=== PATIENT | female | born 1985 | race Caucasian/White ===

== ENCOUNTER 2016-12-15 21:41 | Emergency (ER) | payer OTHER ==
[~2016-12-15 21:41] MED LIST: 'XANAX1 MG PO; ABILIFY2 MG PO; AMOXICILLIN500 M2 PO; AMOXIL500 MG PO; ARMOUR THYROID15 M1 PO; ATIVAN0.5 MG PO; B12,B-12,B 12500 MC1 PO; HYDROCODONE BIT1 T11 PO; LAMICTAL ODT25 MG MM; LASIX20 MG PO; LEVAQUIN750 M1 PO; MEDROL DOSEPAK4 MG PO; MELOXICAM7.5 MG PO; MOTRIN800 MG PO; NP THYROID30 MG PO; PERCOCET 325 MG1 TA2 PO; PERCOCET 325 MG1 TA5 PO; PREDNISONE20 M1 PO; PRENATAL1 TA1 PO; PROZAC40 MG PO; SERTRALINE HYDR50 MG PO; SPRINTEC 35 MCG1 TA1 PO; SYNTHROID0.075 MG PO; TESSALON PERLE100 M1 PO; TOPIRAMATE100 MG PO; TRAMADOL HCL50 MG PO; VENTOLIN 02.5 MG/3 M INH; VIBRAMYCIN100 MG PO; VICODIN 500 MG-1 TAB PO; ZOFRAN4 MG PO
[2016-12-15] MEDS ORDERED: PRENATAL1 TA3 PO (21:46)
[2016-12-15] MEDS ORDERED: PREDNISONE10 MG PO (21:53)
[2016-12-15] MEDS ORDERED: AVPAK AZITHROM250 M1 PO (21:53)
[2016-12-15] MEDS ORDERED: VENTOLIN H0.09 MG/AC INH (21:53)
== END 2016-12-15 22:17 | disposition home or self-care (01) ==
LOC: ED 21:41
DX: J06.9 Acute upper respiratory infection, unspecified (principal); R03.0 Elevated blood-pressure reading, without diagnosis of hypertension; F17.200 Nicotine dependence, unspecified, uncomplicated; F32.9 Major depressive disorder, single episode, unspecified; E03.9 Hypothyroidism, unspecified; Z90.49 Acquired absence of other specified parts of digestive tract; Z91.030 Bee allergy status; Z91.013 Allergy to seafood; Z88.8 Allergy status to other drugs, medicaments and biological substances

== ENCOUNTER 2017-01-11 13:53 | Emergency (ER) | payer OTHER ==
[~2017-01-11] VITALS: Ht 160 cm; Wt 108.9 kg
[~2017-01-11 13:53] MED LIST changes: +AVPAK AZITHROM250 M1 PO; +PREDNISONE10 MG PO; +PRENATAL1 TA3 PO; +VENTOLIN H0.09 MG/AC INH
[2017-01-11] MEDS ORDERED: LEVOTHYROXIN0.075 M1 PO (14:21)
[2017-01-11] MEDS ORDERED: ACYCLOVIR400 MG PO (15:30)
[2017-01-11] MEDS ORDERED: DELTASONE20 M1 PO (15:30)
== END 2017-01-11 15:39 | disposition home or self-care (01) ==
LOC: ED 13:53
DX: O26.892 Other specified pregnancy related conditions, second trimester (principal); G51.0 Bell's palsy; F17.200 Nicotine dependence, unspecified, uncomplicated; Z98.890 Other specified postprocedural states; Z90.49 Acquired absence of other specified parts of digestive tract; Z79.899 Other long term (current) drug therapy; Z91.030 Bee allergy status; Z88.6 Allergy status to analgesic agent; Z91.013 Allergy to seafood; Z88.3 Allergy status to other anti-infective agents; Z3A.22 22 weeks gestation of pregnancy

== ENCOUNTER 2017-12-18 23:28 | Emergency (ER) | payer OTHER ==
[~2017-12-18] VITALS: Ht 160 cm; Wt 102.1 kg
[~2017-12-18 23:28] MED LIST changes: +ACYCLOVIR400 MG PO; +DELTASONE20 M1 PO; +LEVOTHYROXIN0.075 M1 PO
[2017-12-19] MEDS ORDERED: ANAPROX DS550 MG PO (00:16)
[2017-12-19] MEDS ORDERED: CLINDAMYCIN HC300 MG PO (00:16)
== END 2017-12-19 00:53 | disposition home or self-care (01) ==
LOC: ED 23:28
DX: K08.89 Other specified disorders of teeth and supporting structures (principal); F17.200 Nicotine dependence, unspecified, uncomplicated; Z91.030 Bee allergy status; Z91.013 Allergy to seafood; Z88.8 Allergy status to other drugs, medicaments and biological substances; Z79.899 Other long term (current) drug therapy; Z90.49 Acquired absence of other specified parts of digestive tract

== ENCOUNTER → 2018-06-17 | Outpatient (CLI) | payer OTHER ==
[~2018-06-17] MED LIST changes: +ANAPROX DS550 MG PO; +CLINDAMYCIN HC300 MG PO
== END | disposition home or self-care (01) ==
LOC: US 05-16 17:00
DX: E03.9 Hypothyroidism, unspecified (principal); E04.9 Nontoxic goiter, unspecified

== ENCOUNTER 2018-10-22 14:06 | Emergency (ER) | payer OTHER ==
[~2018-10-22] VITALS: Ht 162.5 cm; Wt 106.6 kg
[2018-10-22] MEDS ORDERED: AMOXICILLIN500 M2 PO (16:04)
[2018-10-22] MEDS ORDERED: PROAIR HFA8.5 GM INH (16:08)
[2019-03-07] MEDS ORDERED: IBUPROFEN600 MG PO (14:36)
[2019-03-07] MEDS ORDERED: SEPTDS PO (14:36)
== END 2018-10-22 16:15 | disposition home or self-care (01) ==
LOC: ED 14:06
DX: O99.513 Diseases of the respiratory system complicating pregnancy, third trimester (principal); O21.2 Late vomiting of pregnancy; J06.9 Acute upper respiratory infection, unspecified; J45.909 Unspecified asthma, uncomplicated; Z91.030 Bee allergy status; Z91.013 Allergy to seafood; Z88.8 Allergy status to other drugs, medicaments and biological substances; Z79.899 Other long term (current) drug therapy; Z87.891 Personal history of nicotine dependence; Z3A.29 29 weeks gestation of pregnancy

== ENCOUNTER 2019-03-19 07:02 | Emergency (ER) | payer OTHER ==
[~2019-03-19] VITALS: Ht 162.5 cm; Wt 104.3 kg
[~2019-03-19 07:02] MED LIST changes: +IBUPROFEN600 MG PO; +PROAIR HFA8.5 GM INH; +SEPTDS PO
[2019-03-19] MEDS ORDERED: NAPROSYN500 MG PO (08:17)
[2019-03-19] MEDS ORDERED: TYLENOL325 M1 PO (08:17)
== END 2019-03-19 08:30 | disposition home or self-care (01) ==
LOC: ED 07:02
DX: S39.92XA Unspecified injury of lower back, initial encounter (principal); R51 Headache; M25.572 Pain in left ankle and joints of left foot; F17.200 Nicotine dependence, unspecified, uncomplicated; E03.9 Hypothyroidism, unspecified; E66.9 Obesity, unspecified; Z79.899 Other long term (current) drug therapy; Z91.030 Bee allergy status; Z88.8 Allergy status to other drugs, medicaments and biological substances; Z91.013 Allergy to seafood; W10.8XXA Fall (on) (from) other stairs and steps, initial encounter; Y93.89 Activity, other specified; Y92.89 Other specified places as the place of occurrence of the external cause; Y99.8 Other external cause status

== ENCOUNTER → 2020-02-23 | Outpatient (CLI) | payer OTHER ==
[~2020-02-23] MED LIST changes: +NAPROSYN500 MG PO; +TYLENOL325 M1 PO
== END | disposition home or self-care (01) ==
LOC: US 17:00
DX: Z34.82 Encounter for supervision of other normal pregnancy, second trimester (principal); Z3A.13 13 weeks gestation of pregnancy

== ENCOUNTER 2020-09-03 12:24 | Emergency (ER) | payer OTHER ==
[~2020-09-03] VITALS: Ht 152.4 cm; Wt 116.1 kg
[2020-09-03 13:10] LABS: BASO # 0.1 10*3/uL (0.0-0.1); BASO % 0.9 % (0.0-1.0); EOS # 0.6 10*3/uL (0.0-0.4); EOS % 8.7 % (1.0-4.0); HEMATOCRIT 35.2 % (37.0-47.0); LYMPH # 1.6 10*3/uL (1.3-4.4); LYMPH % 23.8 % (27.0-41.0); MEAN CORPUSCULAR HGB 25.2 pg (27.0-31.0); MEAN CORPUSCULAR HGB CONC 30.4 g/dl (33.0-37.0); MONO # 0.3 10*3/uL (0.1-1.0); MONO % 4.1 % (3.0-9.0); NEUT # 4.3 10*3/uL (2.3-7.9); NEUT % 62.4 % (47.0-73.0); PLATELET COUNT AUTOMATED 364 10*3/uL (130-400); RED BLOOD COUNT 4.24 10*6/uL (4.10-5.10); RED CELL DISTRI WIDTH 15.2 % (0-14.5); WHITE BLOOD COUNT 6.8 10*3/uL (4.8-10.8)
[2020-09-03 13:46] LABS: ALBUMIN 2.9 gm/dl (3.1-4.5); ALKALINE PHOSPHATASE 85 U/L (45-117); BUN 8 mg/dl (7-24); CHLORIDE 113 mmol/L (98-107); CREATININE 0.64 mg/dL (0.55-1.02); POTASSIUM 4.1 mmol/L (3.5-5.1); SGOT/AST 9 IU/L (3-35); SGPT/ALT 21 U/L (12-78); SODIUM 143 mmol/L (136-145); TOTAL PROTEIN 6.4 gm/dL (6.4-8.2)
[2020-09-03 13:48] LABS: TROPONIN I < 0.015 ng/ml (<0.045)
[2020-09-03] MEDS ORDERED: ZITHROMAX250 MG PO (14:47)
== END 2020-09-03 14:52 | disposition home or self-care (01) ==
LOC: ED 12:24
PROVIDERS: Nurse Practitioner Family
DX: O99.53 Diseases of the respiratory system complicating the puerperium (principal); J18.9 Pneumonia, unspecified organism; J45.909 Unspecified asthma, uncomplicated; O99.345 Other mental disorders complicating the puerperium; F41.9 Anxiety disorder, unspecified; F32.9 Major depressive disorder, single episode, unspecified; O99.335 Smoking (tobacco) complicating the puerperium; F17.210 Nicotine dependence, cigarettes, uncomplicated; Z98.890 Other specified postprocedural states; Z90.49 Acquired absence of other specified parts of digestive tract; Z91.030 Bee allergy status; Z88.8 Allergy status to other drugs, medicaments and biological substances; Z91.013 Allergy to seafood

== ENCOUNTER 2020-12-15 19:50 | Emergency (ER) | payer OTHER ==
[~2020-12-15] VITALS: Wt 108.9 kg
[~2020-12-15 19:50] MED LIST changes: +ZITHROMAX250 MG PO
[2020-12-15] MEDS ORDERED: LEVOTHYROXINE150 MCG PO (20:11)
[2020-12-15 21:25] LABS: BASO # 0.1 10*3/uL (0.0-0.1); BASO % 0.8 % (0.0-1.0); EOS # 0.4 10*3/uL (0.0-0.4); EOS % 5.6 % (1.0-4.0); HEMATOCRIT 34.2 % (37.0-47.0); LYMPH # 2.1 10*3/uL (1.3-4.4); LYMPH % 33.9 % (27.0-41.0); MEAN CELL VOLUME 85.7 fl (81.0-99.0); MEAN CORPUSCULAR HGB 28.6 pg (27.0-31.0); MEAN CORPUSCULAR HGB CONC 33.3 g/dl (33.0-37.0); MONO # 0.2 10*3/uL (0.1-1.0); MONO % 3.7 % (3.0-9.0); NEUT # 3.5 10*3/uL (2.3-7.9); NEUT % 55.7 % (47.0-73.0); PLATELET COUNT AUTOMATED 347 10*3/uL (130-400); RED BLOOD COUNT 3.99 10*6/uL (4.10-5.10); RED CELL DISTRI WIDTH 14.6 % (0-14.5); WHITE BLOOD COUNT 6.2 10*3/uL (4.8-10.8)
[2020-12-15 21:39] LABS: ALBUMIN 3.3 gm/dl (3.1-4.5); ALKALINE PHOSPHATASE 72 U/L (45-117); BUN 10 mg/dl (7-24); CHLORIDE 108 mmol/L (98-107); POTASSIUM 3.5 mmol/L (3.5-5.1); SGOT/AST 6 IU/L (3-35); SGPT/ALT 21 U/L (12-78); SODIUM 140 mmol/L (136-145); TOTAL PROTEIN 7.2 gm/dL (6.4-8.2)
[2020-12-15 22:18] LABS: BILIRUBIN Negative (Negative); BLOOD Negative (Negative); CLARITY Clear (Clear); COLOR Yellow (Yellow); GLUCOSE Negative (Negative); KETONE Negative (Negative); LEUKO ESTERASE Negative (Negative); NITRITE Negative (Negative); SPECIFIC GRAVITY <= 1.005 (1.001-1.030); UROBILINOGEN 0.2 E.U./dl (0.0-1.0)
[2020-12-15 22:38] LABS: BACTERIA TRACE; EPITHELIAL CELLS 16-20
== END 2020-12-16 02:17 | disposition home or self-care (01) ==
LOC: ED 19:50
PROVIDERS: Emergency Medicine
DX: R42 Dizziness and giddiness (principal); G43.909 Migraine, unspecified, not intractable, without status migrainosus; E03.9 Hypothyroidism, unspecified; Z91.030 Bee allergy status; Z88.8 Allergy status to other drugs, medicaments and biological substances; Z79.899 Other long term (current) drug therapy; Z91.013 Allergy to seafood; Z98.890 Other specified postprocedural states; Z90.49 Acquired absence of other specified parts of digestive tract

== ENCOUNTER 2021-01-19 00:08 | Emergency (ER) | payer OTHER ==
[~2021-01-19] VITALS: Ht 162.5 cm; Wt 63.5 kg
[~2021-01-19 00:08] MED LIST changes: +LEVOTHYROXINE150 MCG PO
[2021-01-19 01:08] LABS: BASO # 0.1 10*3/uL (0.0-0.1); BASO % 0.7 % (0.0-1.0); EOS # 0.2 10*3/uL (0.0-0.4); HEMATOCRIT 38.5 % (37.0-47.0); LYMPH # 2.2 10*3/uL (1.3-4.4); LYMPH % 28.4 % (27.0-41.0); MEAN CELL VOLUME 85.4 fl (81.0-99.0); MEAN CORPUSCULAR HGB 28.2 pg (27.0-31.0); MEAN PLATELET VOLUME 9.1 fl (9.6-12.3); MONO # 0.4 10*3/uL (0.1-1.0); MONO % 5.2 % (3.0-9.0); NEUT # 4.8 10*3/uL (2.3-7.9); NEUT % 63.4 % (47.0-73.0); PLATELET COUNT AUTOMATED 380 10*3/uL (130-400); RED BLOOD COUNT 4.51 10*6/uL (4.10-5.10); RED CELL DISTRI WIDTH 13.3 % (0-14.5); WHITE BLOOD COUNT 7.6 10*3/uL (4.8-10.8)
[2021-01-19 01:27] LABS: ALBUMIN 3.9 gm/dl (3.1-4.5); ALKALINE PHOSPHATASE 70 U/L (45-117); BUN 6 mg/dl (7-24); CHLORIDE 104 mmol/L (98-107); CREATININE 0.74 mg/dL (0.55-1.02); POTASSIUM 3.3 mmol/L (3.5-5.1); SGOT/AST 15 IU/L (3-35); SGPT/ALT 40 U/L (12-78); SODIUM 139 mmol/L (136-145); TOTAL PROTEIN 7.7 gm/dL (6.4-8.2)
[2021-01-19] MEDS ORDERED: ZOLOFT100 MG PO (01:33)
[2021-01-19] MEDS ORDERED: DOXYCYCLINE100 M3 PO (01:33)
[2021-01-19 05:45] LABS: BILIRUBIN Negative (Negative); BLOOD Negative (Negative); CLARITY Clear (Clear); COLOR Dark Yellow (Yellow); GLUCOSE Negative (Negative); KETONE Trace (Negative); LEUKO ESTERASE Negative (Negative); NITRITE Negative (Negative); PH 5.5 (4.5-8.0)
[2021-01-19 05:53] LABS: URINE AMPHETAMINES < 1000 (1000ng/ml); URINE BARBITURATES < 200 (200ng/ml); URINE BENZODIAZEPINES < 200 (200ng/ml); URINE CANNABINOIDS (THC) > 50 (50ng/ml); URINE COCAINE < 300 (300ng/ml); URINE METHADONE < 300 (300ng/ml); URINE OPIATES < 300 (300ng/ml)
[2021-01-19 05:54] LABS: EPITHELIAL CELLS 31-40; MUCOUS 1+
[2021-01-19 05:55] LABS: WBC 0-2 wbc/hpf (0-5)
[2021-01-19 05:56] LABS: URINE PHENCYCLIDINE < 25 (25ng/ml)
== END 2021-01-19 15:50 | disposition short-term general hospital (02) ==
LOC: ED 00:08
PROVIDERS: Emergency Medicine
DX: R56.9 Unspecified convulsions (principal); F17.200 Nicotine dependence, unspecified, uncomplicated; Z90.49 Acquired absence of other specified parts of digestive tract; Z98.890 Other specified postprocedural states; Z91.030 Bee allergy status; Z88.6 Allergy status to analgesic agent; Z91.013 Allergy to seafood

== ENCOUNTER → 2021-02-16 | Outpatient (CLI) | payer OTHER ==
[~2021-02-16] MED LIST changes: +DOXYCYCLINE100 M3 PO; +ZOLOFT100 MG PO
== END | disposition home or self-care (01) ==
LOC: US 01-20 14:00
PROVIDERS: ATTEND Nurse Practitioner Women's Health
DX: R10.2 Pelvic and perineal pain (principal)

== ENCOUNTER 2021-04-06 17:21 | Emergency (ER) | payer OTHER | END 2021-04-06 18:40 | disposition left against medical advice (07) | LOC: ED 17:21 | DX: M54.2 Cervicalgia (principal); R10.9 Unspecified abdominal pain; Z53.21 Procedure and treatment not carried out due to patient leaving prior to being seen by health care provider ==

== ENCOUNTER → 2021-12-18 | Outpatient (CLI) | payer OTHER | END | disposition home or self-care (01) | LOC: RAD 18:12 | PROVIDERS: ATTEND Nurse Practitioner Family | DX: M25.561 Pain in right knee (principal); M25.562 Pain in left knee; M25.469 Effusion, unspecified knee ==

== ENCOUNTER → 2022-01-11 | Outpatient (CLI) | payer OTHER | END | disposition home or self-care (01) | LOC: US 12-29 13:30 | PROVIDERS: ATTEND Nurse Practitioner Family | DX: E04.9 Nontoxic goiter, unspecified (principal) ==

== ENCOUNTER → 2023-03-04 | Day surgery (SDC) | payer OTHER ==
[2023-03-01 10:38] VITALS: BP 126/75
[2023-03-04] VITALS (10 sets, daily range): BP systolic 91–113; BP diastolic 42–75
[~2023-03-04] VITALS: Ht 162.5 cm; Wt 96.6 kg
[~2023-03-04] MED LIST changes: +COLACE100 MG PO; +HYDROCODONE-AC1 EAC1 PO; +ONDANSETRON HYDR4 M1 PO; +Synthroid,Levo88 MCG PO
== END ==
LOC: SDC 03-01 10:15
PROVIDERS: ATTEND Surgery
DX: K42.9 Umbilical hernia without obstruction or gangrene (principal); E03.9 Hypothyroidism, unspecified; G43.909 Migraine, unspecified, not intractable, without status migrainosus; F41.9 Anxiety disorder, unspecified; J45.909 Unspecified asthma, uncomplicated; F17.210 Nicotine dependence, cigarettes, uncomplicated; Z79.899 Other long term (current) drug therapy; Z90.49 Acquired absence of other specified parts of digestive tract; Z90.89 Acquired absence of other organs; Z98.891 History of uterine scar from previous surgery

== ENCOUNTER 2023-03-09 08:16 | Emergency (ER) | payer OTHER ==
[~2023-03-09] VITALS: Ht 162.5 cm; Wt 96.6 kg
[2023-03-09 09:06] LABS: BASO % 0.4 % (0.0-1.0); EOS # 0.3 10*3/uL (0.0-0.4); HEMATOCRIT 33.2 % (37.0-47.0); LYMPH # 1.6 10*3/uL (1.3-4.4); LYMPH % 35.8 % (27.0-41.0); MEAN CELL VOLUME 77.6 fl (81.0-99.0); MEAN CORPUSCULAR HGB 24.3 pg (27.0-31.0); MEAN CORPUSCULAR HGB CONC 31.3 g/dl (33.0-37.0); MEAN PLATELET VOLUME 9.4 fl (9.6-12.3); MONO # 0.2 10*3/uL (0.1-1.0); MONO % 3.8 % (3.0-9.0); NEUT # 2.4 10*3/uL (2.3-7.9); NEUT % 53.8 % (47.0-73.0); PLATELET COUNT AUTOMATED 291 10*3/uL (130-400); RED BLOOD COUNT 4.28 10*6/uL (4.10-5.10); RED CELL DISTRI WIDTH 16.1 % (0-14.5); WHITE BLOOD COUNT 4.5 10*3/uL (4.8-10.8)
[2023-03-09 09:29] LABS: ALKALINE PHOSPHATASE 57 U/L (46-116); BUN 6 mg/dl (9-23); CHLORIDE 106 mmol/L (98-107); POTASSIUM 3.6 mmol/L (3.4-5.1); TOTAL PROTEIN 6.8 gm/dL (6.0-8.0)
[2023-03-09 09:30] LABS: SGPT/ALT < 7 U/L (10-49)
[2023-03-09] MEDS ORDERED: TRAMADOL HCL50 MG PO (11:46)
[2023-03-09] MEDS ORDERED: REGLAN10 M1 PO (11:46)
[2023-03-09] MEDS ORDERED: CEPHALEXIN500 M1 PO (11:46)
[2023-03-09] MEDS ORDERED: SEPTDS PO (11:46)
== END 2023-03-09 12:40 | disposition home or self-care (01) ==
LOC: ED 08:16
PROVIDERS: Emergency Medicine
DX: R10.10 Upper abdominal pain, unspecified (principal); L03.311 Cellulitis of abdominal wall; R11.2 Nausea with vomiting, unspecified; J45.909 Unspecified asthma, uncomplicated; F41.9 Anxiety disorder, unspecified; F32.A Depression, unspecified; Z91.030 Bee allergy status; Z88.8 Allergy status to other drugs, medicaments and biological substances; Z91.013 Allergy to seafood; Z90.49 Acquired absence of other specified parts of digestive tract; Z98.890 Other specified postprocedural states; F17.200 Nicotine dependence, unspecified, uncomplicated

== ENCOUNTER 2023-09-24 06:02 | Emergency (ER) | payer OTHER ==
[~2023-09-24] VITALS: Ht 160 cm; Wt 87.5 kg
[~2023-09-24 06:02] MED LIST changes: +CEPHALEXIN500 M1 PO; +REGLAN10 M1 PO
[2023-09-24] MEDS ORDERED: Amoxicillin/Clavulanate Pota 875 MG TAB PO ONE (06:10)
[2023-09-24] MEDS ORDERED: AMOX-CLAV 875-1 EACH PO (06:12)
== END 2023-09-24 06:17 | disposition home or self-care (01) ==
LOC: ED 06:02
DX: K02.9 Dental caries, unspecified (principal); K04.7 Periapical abscess without sinus; J45.909 Unspecified asthma, uncomplicated; F41.9 Anxiety disorder, unspecified; F32.A Depression, unspecified; F17.210 Nicotine dependence, cigarettes, uncomplicated; Z91.030 Bee allergy status; Z91.013 Allergy to seafood; Z88.8 Allergy status to other drugs, medicaments and biological substances; Z90.49 Acquired absence of other specified parts of digestive tract; Z98.890 Other specified postprocedural states

== ENCOUNTER 2024-06-15 09:00 | Emergency (ER) | payer BC ==
[~2024-06-15] VITALS: Ht 180.3 cm; Wt 86.2 kg
[~2024-06-15 09:00] MED LIST changes: +AMOX-CLAV 875-1 EACH PO; +CIPRO500 MG PO; +ONDANSETRON4 MG SL
[2024-06-15] MEDS ORDERED: Albuterol Sulfate 2.5 MG/3 ML VIAL NEB ONE (09:20)
[2024-06-15] MEDS ORDERED: DEXAMETHASONE 4 MG TAB PO ONE ×2 (09:20→11:10)
[2024-06-15 09:49] LABS: BASO % 0.7 % (0.0-1.0); EOS # 0.2 10*3/uL (0.0-0.4); EOS % 5.3 % (1.0-4.0); HEMATOCRIT 32.3 % (37.0-47.0); MEAN CORPUSCULAR HGB 23.7 pg (27.0-31.0); MEAN CORPUSCULAR HGB CONC 30.3 g/dl (33.0-37.0); MEAN PLATELET VOLUME 8.4 fl (9.6-12.3); MONO # 0.2 10*3/uL (0.1-1.0); MONO % 4.6 % (3.0-9.0); NEUT # 2.9 10*3/uL (2.3-7.9); NEUT % 66.6 % (47.0-73.0); PLATELET COUNT AUTOMATED 293 10*3/uL (130-400); RED BLOOD COUNT 4.14 10*6/uL (4.10-5.10); RED CELL DISTRI WIDTH 16.9 % (0-14.5); WHITE BLOOD COUNT 4.4 10*3/uL (4.8-10.8)
[2024-06-15 10:13] LABS: BUN 8 mg/dl (9-23); CHLORIDE 108 mmol/L (98-107); POTASSIUM 3.8 mmol/L (3.4-5.1)
[2024-06-15] MEDS ORDERED: ZITHROMAX250 MG PO (11:09)
[2024-06-15] MEDS ORDERED: AZITHROMYCIN 250 MG TAB PO ONE (11:10)
[2024-06-15] MEDS ORDERED: ALBUTEROL 8 GM INHALER INH ONE (11:10)
[2024-06-15] MEDS ORDERED: PREDNISONE50 MG PO (11:10)
== END 2024-06-15 11:48 | disposition home or self-care (01) ==
LOC: ED 09:00
PROVIDERS: Nurse Practitioner Family
DX: J98.4 Other disorders of lung (principal); Z20.822 Contact with and (suspected) exposure to COVID-19; J45.909 Unspecified asthma, uncomplicated; F41.9 Anxiety disorder, unspecified; F32.A Depression, unspecified; F17.200 Nicotine dependence, unspecified, uncomplicated; Z91.030 Bee allergy status; Z91.013 Allergy to seafood; Z88.8 Allergy status to other drugs, medicaments and biological substances; Z90.49 Acquired absence of other specified parts of digestive tract; Z98.890 Other specified postprocedural states

== ENCOUNTER 2025-07-03 11:30 | Emergency (ER) | payer SELFPAY ==
[~2025-07-03] VITALS: Ht 160 cm; Wt 93.0 kg
[~2025-07-03 11:30] MED LIST changes: +PREDNISONE50 MG PO
== END 2025-07-03 13:24 | disposition home or self-care (01) ==
LOC: ED 11:30
DX: S93.401A Sprain of unspecified ligament of right ankle, initial encounter (principal); J45.909 Unspecified asthma, uncomplicated; F41.9 Anxiety disorder, unspecified; F32.A Depression, unspecified; Z91.030 Bee allergy status; Z88.8 Allergy status to other drugs, medicaments and biological substances; Z91.013 Allergy to seafood; X50.1XXA Overexertion from prolonged static or awkward postures, initial encounter; Y93.89 Activity, other specified; Y92.89 Other specified places as the place of occurrence of the external cause; Y99.8 Other external cause status